=== PATIENT | male | born 1955 | race Caucasian/White ===

== ENCOUNTER 2021-09-06 19:33 | Inpatient (IN) | payer BC ==
[~2021-09-06] VITALS: Ht 170.2 cm; Wt 69.4 kg
--- NOTE | 2021-09-06 19:45 | NUR ---
DR BURRIS AT BEDSIDE ASSESSING PATIENT
[2021-09-06 19:49] VITALS: BP_SYST 183
--- NOTE | 2021-09-06 19:57 | NUR ---
Patient to ER bed 2 to gown for evaluation. Side rails up. Report given to .
--- NOTE | 2021-09-06 20:10 | NUR ---
COVID test sample collected and sent to lab at this time
[2021-09-06 20:15] LABS: AMYLASE 82 U/L (0-100); ANION GAP 11 (5-15); CALCIUM 8.4 mg/dL (8.4-11.0); CHLORIDE 104 mmol/L (98-107); CREATININE 1.29 mg/dL (0.55-1.30); GLUCOSE 101 mg/dL (70-99); LIPASE 167 U/L (73-393); POTASSIUM 4.1 mmol/L (3.5-5.1); SODIUM SERUM 137 mmol/L (136-145); UREA NITROGEN, BLOOD 12 mg/dL (8-21)
[2021-09-06 20:16] LABS: GFR AFRICAN AMERICAN 72 mL/min (>90)
[2021-09-06 20:23] LABS: ALANINE AMINOTRANSFERASE 36 U/L (12-78); ALBUMIN 3.6 g/dL (3.4-4.8); ASPARTATE AMINOTRANSFERASE 41 U/L (10-37); TOTAL BILIRUBIN 0.2 mg/dL (0.0-1.0)
[2021-09-06 20:24] LABS: PROTHROMBIN TIME 10.6 SECS (9.5-12.5)
[2021-09-06 20:26] LABS: BASOPHILS % (AUTO) 0.5 % (0.0-2.0); EOSINOPHILS # (AUTO) 0.1 K/uL (0.0-0.4); EOSINOPHILS % (AUTO) 1.5 % (0.0-4.0); HEMATOCRIT 38.9 % (36-54); HEMOGLOBIN 12.9 g/dL (14.0-18.0); LYMPHOCYTES # (AUTO) 2.5 K/uL (1.0-5.5); LYMPHOCYTES % (AUTO) 30.2 % (20.5-51.5); MEAN CORPUSCULAR HEMOGLOBIN 29 pg (27-31); MEAN CORPUSCULAR HGB CONC 33 % (32-36); MEAN CORPUSCULAR VOLUME 88 fL (79.0-98.0); MONOCYTES # (AUTO) 0.9 K/uL (0.0-1.0); MONOCYTES % (AUTO) 10.6 % (1.7-9.3); NEUTROPHILS # (AUTO) 4.8 K/uL (1.8-7.7); NEUTROPHILS % (AUTO) 57.2 % (40.0-70.0); PLATELET COUNT (AUTO) 291 K/uL (130-430); RED BLOOD CELL COUNT(AUTO) 4.44 MIL/uL (4.2-6.2); RED CELL DISTRIBUTION WIDTH 13.3 % (9.0-15.0); WHITE BLOOD COUNT (AUTO) 8.4 K/uL (4.8-10.8)
--- NOTE | 2021-09-06 20:33 | NUR ---
received critical lab value from lab: High sense troponin was 89. report read back and verified with lab. Dr. Bowers notified. no new orders
--- NOTE | 2021-09-06 20:34 | NUR ---
BLOOD GLUCOSE CHECKED-89
--- NOTE | 2021-09-06 20:34 | NUR ---
1999 PT WENT TO RADIOLOGY FOR HEAD CT
[2021-09-06] MEDS ORDERED: ASPIRIN 325 MG TABLET (ECOTRIN) PO ONE (20:45)
--- NOTE | 2021-09-06 20:50 | NUR ---
CALLED DR HAYDEN FOR ADMISSION ORDERS SEE CPOE
[2021-09-06] MEDS ORDERED: NACL 0.9% 1,000 ML IV ONE (21:00)
[2021-09-06] MEDS ORDERED: LOSARTAN POTASSIUM 50 MG TABLET (COZAAR) PO STA (21:07)
--- NOTE | 2021-09-06 21:10 | NUR ---
BP ELEVATED TAB COZARR ORDERED BY DR FERMIN SEE CPOE, MEDICATED.
--- NOTE | 2021-09-06 23:00 | NUR ---
RECEIVED CRITICAL LAB Troponin: [address] Stone at this time
--- NOTE | 2021-09-06 23:45 | NUR ---
ADMISSION NOTE Received patient from ER via [email or web address], received report from ER/ RN. Patient admitted with diagnosis of SYNCOPE . Patient oriented to hospital routine, call light, toileting and safety-patient verbalized understanding.
[2021-09-07] VITALS (8 sets, daily range): BP systolic 114–166
[2021-09-07 05:02] LABS: BASOPHILS % (AUTO) 0.5 % (0.0-2.0); EOSINOPHILS # (AUTO) 0.1 K/uL (0.0-0.4); EOSINOPHILS % (AUTO) 1.1 % (0.0-4.0); HEMOGLOBIN 12.3 g/dL (14.0-18.0); LYMPHOCYTES # (AUTO) 2.3 K/uL (1.0-5.5); LYMPHOCYTES % (AUTO) 31.4 % (20.5-51.5); MEAN CORPUSCULAR HEMOGLOBIN 29 pg (27-31); MEAN CORPUSCULAR HGB CONC 33 % (32-36); MEAN CORPUSCULAR VOLUME 87 fL (79.0-98.0); MONOCYTES # (AUTO) 0.8 K/uL (0.0-1.0); MONOCYTES % (AUTO) 10.6 % (1.7-9.3); NEUTROPHILS # (AUTO) 4.2 K/uL (1.8-7.7); NEUTROPHILS % (AUTO) 56.4 % (40.0-70.0); PLATELET COUNT (AUTO) 264 K/uL (130-430); RED BLOOD CELL COUNT(AUTO) 4.27 MIL/uL (4.2-6.2); RED CELL DISTRIBUTION WIDTH 13.3 % (9.0-15.0); WHITE BLOOD COUNT (AUTO) 7.4 K/uL (4.8-10.8)
[2021-09-07 05:18] LABS: CALCIUM 7.9 mg/dL (8.4-11.0); CREATININE 0.97 mg/dL (0.55-1.30); POTASSIUM 4.1 mmol/L (3.5-5.1)
[2021-09-07 05:33] LABS: THYROID STIMULATING HORMONE 1.59 uIu/mL (0.36-3.74)
--- NOTE | 2021-09-07 05:45 | NUR ---
0545 Received critical care result for troponin of 112. Result called to Dr. Perez and also was informed of the patients bradycardia when asleep of high 40's. MD was made aware and no new order made.
--- NOTE | 2021-09-07 06:40 | NUR ---
2330 CALLED REPORT TO ANNAMARIE MOE RN FOR CONTINUITY OF CARE. Addendum: 09/07/21 at 0644 by Dennis Bustamante RN 09/06/2021 2330 CALLED REPORT TO ANNAMARIE MOE RN ,FOR CONTINUITY OF CARE
--- NOTE | 2021-09-07 07:30 | NUR ---
RECEIVED PT FROM QUANG MCCLURE. PT IS AAOX4. TELEMONITOR IN PLACE READING SINUS DEEP, HR 57. PT DENIES C/P, PRESSURE AND PALPITATIONS, DENIES DIZZINESS. RESP E/U. NO COUGH OR SOB. ON R/A. ABDOMEN SOFT, NONTENDER, NONDISTENDED. BOWEL SOUNDS ACTIVE X4. DENIES N/V/D/C. DISTAL PULSES NORMAL, NO EDEMA. PT HAS IV CATH TO RG 24G, SITE WNL, DRESSING CDI, S/L. PT DENIES PAIN. VOID FREELY, AMBULATES INPENDENTLY. CALL LIGHT WITHIN REACH. BED IN LOWEST POSITION. DR. SUNSHINE IN ROOM TO ASSESS PT. NNOS.
[2021-09-07] MEDS ORDERED: ATENOLOL 50 MG TABLET (TENORMIN) PO SCH (09:00)
[2021-09-07] MEDS ORDERED: LOSARTAN POTASSIUM 50 MG TABLET (COZAAR) PO SCH (09:00)
[2021-09-07] MEDS ORDERED: ATORVASTATIN 20 MG TABLET PO SCH (09:00)
--- NOTE | 2021-09-07 09:32 | NUR ---
REPORTED TO DR. FERMIN THAT THE PT'S HR TRENDS 55-61, WOULD HE STILL LIKE THE PT'S ATENOLOL GIVEN. HE STATED YES THE PT HR STILL INCREASES WHEN THE PT WALKS. PT MADE AWARE.
[2021-09-07] MEDS ORDERED: ATEN-167 PO (14:08)
[2021-09-07] MEDS ORDERED: LIP20 PO (14:08)
[2021-09-07] MEDS ORDERED: LOSA50TA3 PO (14:08)
[2021-09-07] MEDS ORDERED: Aspirin Ec PO (14:12)
[2021-09-07] MEDS ORDERED: ASPIRIN 81 MG TABLET(ECOTRIN) PO ONE (14:15)
--- NOTE | 2021-09-07 14:30 | NUR ---
ORTHOSTATIC HYPOTENSION B/P PREFORMED ON PT AND RESULTS GIVEN TO DR. HAYDEN. DR. MEIER STATED PT IS FINE TO DISCHARGE ONCE U/S IN COMPLETED AND DR. FERMIN STATES PT IS OKAY TO LEAVE.
--- NOTE | 2021-09-07 15:15 | NUR ---
RECEIVED CALL FROM DR FERMIN FOR PT.DR FERMIN ASKED FOR CAROTID ULTRASOUND INFORMED THAT PT IS HAVING EXAM RIGHT NOW. DR FERMIN STATED PT CAN BE DISCHARGED .DONT WAIT FOR RESULT FOR USG CAROTID. RADIOLOGIST CAN CALL HIM DIRECTLY . DR VELASQUEZ HERE NOTIFIED. PRIMARY RN MADE AWARE.
--- NOTE | 2021-09-07 16:40 | NUR ---
PT DISCHARGED IN NO DISTRESS. DISCHARGE INSTRUCTIONS REVIEW WITH PT. ALL QUESTIONS AND CONCERNS ADDRESSED. PT INFORMED NEW PRESCRIPTIONS HAVE BEEN ELECTRONICALLY SENT TO PT'S INDICATED PHARMACY. TELEMONITOR REMOVED AND RETURNED TO [facility]. IV CATH TO REMOVED, SITE WNL, COVERED WITH GAUZE AND TAPE. PT TOOK ALL BELONGING WITH HIM UPON DISCHARGE. [facility]. PT DENIES PAIN AND DIZZINESS UPON DISCHARGE.
[2021-09-08] MEDS ORDERED: ASPIRIN 81 MG TABLET(ECOTRIN) PO SCH (09:00)
== END 2021-09-07 16:35 | disposition home or self-care (01) | DRG 312 ==
LOC: SED 19:33 → STU 20:56
PROVIDERS: ADMIT Internal Medicine; ATTEND Internal Medicine
DX: R55 Syncope and collapse (principal); R77.8 Other specified abnormalities of plasma proteins; I10 Essential (primary) hypertension; E78.5 Hyperlipidemia, unspecified; Z20.822 Contact with and (suspected) exposure to COVID-19; E78.00 Pure hypercholesterolemia, unspecified; Z79.899 Other long term (current) drug therapy; Z87.442 Personal history of urinary calculi
CPT/HCPCS: 36415; 70450-TC; 71045; 76376; 80048; 80053; 80061; 82150; 82550; 82962; 83605; 83690; 84443; 84484; 85025; 85610-TC; 85730-TC; 93005; 93306; 93880; 99285; G0378